=== PATIENT | female | born 1940 | race Caucasian/White ===

== ENCOUNTER 2019-09-06 13:54 | Observation (INO) | payer MEDICARE ==
[~2019-09-06] VITALS: Ht 160 cm; Wt 81.2 kg
[~2019-09-06 13:54] MED LIST: LEVOTHYROXIN25 MCG PO; LEVOTHYROXIN50 MC1 PO; LISINOPRIL20 MG PO; LOPRESSOR50 M2 PO; PHENYTOIN EX100 M1 OR; SIMVASTATIN40 MG OR; SIMVASTATIN40 MG PO
--- NOTE | 2019-09-06 13:54 | NUR ---
PT TO ROOM VIA EMS STRETCHER, FOR BEDSIDE TRIAGE
--- NOTE | 2019-09-06 14:15 | NUR ---
PT POOR HISTORIAN. PT REPORTS HISTORY OF RINGING IN EARS X 2 WEEKS WITH ONSET OF DIZZINESS THIS AM. PT DENIES SYNCOPAL EPISODE. RUST COMPLETED AND IS A 0. PERRLA. PT AND UPDATED ON PLAN OF CARE AND WAIT TIME.
[2019-09-06] MEDS ORDERED: COUMADIN5 MG PO (14:19)
[2019-09-06] MEDS ORDERED: SINGULAIR10 MG PO (14:19)
[2019-09-06] MEDS ORDERED: LEVOTHYROXIN75 MCG PO (14:20)
[2019-09-06 14:51] LABS: HEMATOCRIT 35.9 % (37.0-47.0); HEMOGLOBIN 11.4 g/dl (12.0-16.0); IMMATURE GRANULOCYTES 0.7 % (0.0-5.0); MEAN CELL VOLUME 91.1 fL CALC (80.0-100.0); MEAN CORPUSCULAR HGB 28.9 pG CALC (26.0-32.0); MEAN CORPUSCULAR HGB CONC 31.8 g/dL CAL (32.0-36.0); NEUT# 10.14 thou/uL (2.00-7.15); RED BLOOD COUNT 3.94 mill/uL (4.20-5.60); RED CELL DISTRI WIDTH 13.8 % (11.5-15.5)
[2019-09-06 15:07] LABS: ALBUMIN 3.9 g/dL (3.2-5.0); ALKALINE PHOSPHATASE 93 u/l (38-126); AMYLASE 118 u/l (30-110); BILIRUBIN, TOTAL 0.2 mg/dL (0.0-1.4); BUN 18 mg/dL (8-23); BUN/CREATININE RATIO 25 (12-20 (CALC)); CARBON DIOXIDE 27 mmol/l (22-30); CHLORIDE 101 mmol/l (95-108); CREATININE 0.7 mg/dL (0.5-1.0); ETHYL ALCOHOL 0 mg/dl (0-30); GFR > 60 ML/MIN (>=60 (CALC)); GFR FOR AFR.AMER. > 60 ML/MIN (>=60 (CALC)); LIPASE 141 u/l (23-300); POTASSIUM 4.3 mmol/l (3.5-5.1); SGOT/AST 28 u/l (9-36); TOTAL PROTEIN 7.2 g/dL (6.3-8.2)
--- NOTE | 2019-09-06 15:15 | NUR ---
NOTIFIED AN WE WILL HOLD OFF ON CTA FOR NOW, PER DR TAMEZ.
--- NOTE | 2019-09-06 15:15 | NUR ---
UNABLE TO ESTABLISH IV TO AC.
[2019-09-06 15:16] LABS: ACT PARTIAL THROMBO TIME 33.9 SECONDS (20.0-32.5); ANION GAP 10 (6-22 (CALC)); INTERNATIONAL NORMALIZED RATIO 2.4 RATIO (0.7-1.3); PROTHROMBIN TIME 24.6 SECONDS (9.0-12.5); SODIUM 134 mmol/l (137-146)
--- NOTE | 2019-09-06 16:00 | NUR ---
DR TAMEZ AWARE OF CONTINUED HYPERTENSION. NO NEW ORDERS RECEIVED.
--- NOTE | 2019-09-06 16:45 | NUR ---
PT C/O OF BEING COLD AND SHAKING. PT PROVIDED WARM BLANKETS AND IS AFEBRILE AT THIS TIME.
[2019-09-06 16:54] LABS: URINE BILIRUBIN - DIPSTICK NEGATIVE (NEGATIVE); URINE BLOOD DIPSTICK MODERATE (NEGATIVE); URINE COLOR YELLOW; URINE GLUCOSE - DIPSTICK 100 mg/dL (NEGATIVE); URINE KETONE NEGATIVE (NEGATIVE); URINE LEUK ESTERASE NEGATIVE (NEGATIVE); URINE NITRITE - DIPSTICK NEGATIVE (Negative); URINE PROTEIN - DIPSTICK NEGATIVE (NEG-TRACE); URINE UROBILINOGEN - DIPSTICK 0.2 E.U./dL (0.2)
--- NOTE | 2019-09-06 16:55 | NUR ---
COVID SWAB COMPLETED BY NASOPHARENGEAL SWAB TO RIGHT NARES.
[2019-09-06 17:08] LABS: URINE SQUAMOUS EPITHELIAL CELL FEW EPI/hpf (0-FEW); URINE WBC 0-2 WBC/hpf (0-5)
--- NOTE | 2019-09-06 17:30 | NUR ---
CALL RECEIVED FROM PT'S . HE STATES THE PATIENT HAS BEEN HAVING INTERMITTENT VAGINAL ITCHING AND RASH TO GROIN FOR THE PAST 25 YEARS. HE WOULD LIKE THE ADMITTING PHYSICIAN TO KNOW.
--- NOTE | 2019-09-06 18:15 | NUR ---
PT UPDATED ON PLAN FOR ADMISSION AND WAIT TIME. CALL GREGORY WITHIN REACH, PT DENIES ANY NEEDS AT THIS TIME.
--- NOTE | 2019-09-06 19:00 | NUR ---
PT INCONTINENT OF URINE. PT CLEANED AND LINENS CHANGED.
--- NOTE | 2019-09-06 19:19 | NUR ---
REPORT TO PEDRO BRANCH FOR TRANSPORT.
--- NOTE | 2019-09-06 19:27 | NUR ---
REPORT CALLED TO [facility] FLORES.
--- NOTE | 2019-09-06 20:47 | NUR ---
patient resting quietly at this time. no c/o pain or discomfort. no s/s of distress noted. respirations even and unlabored. awaiting inpatient bed.
--- NOTE | 2019-09-06 21:10 | NUR ---
PT RECEIVED FROM ER VIA STRETCHER ACCOMPANIED BY NURSE. PT ASSISTED IN TO BED. ALERT AND ORIENTED X3. RESP EVEN AND UNLABORED. SKIN INTACT. LUNGS CLEAR BILAT. ABD SOFT AND NONDISTENDED WITH BOWEL SOUNDS PRESENT. NO LOWER EXT EDEMA NOTED. PEDAL PULSES PALPATED BILAT. HEPLOCK IS PATENT IN LEFT HAND. TELE SR HR 70'S. PT ORIENTED TO ROOM AND CALL GREGORY. PT DENIES ANY NAUSEA AT THIS TIME. BED ALARM IS ON FOR PTS SAFETY. OFFERS NO COMPLAINTS. CALL GREGORY WITHIN REACH.
[2019-09-06 21:30] VITALS: BP 156/95
[2019-09-06 21:58] VITALS: BP 156/95
[2019-09-06 23:38] VITALS: BP 167/75
--- NOTE | 2019-09-07 00:15 | NUR ---
RESTING IN BED WITH EYES CLOSED. RESP EVEN AND UNLABORED. NO DISTRESS NOTED. BED ALARM IS ON . FREQUENT ROUNDS MADE. CALL GREGORY WITHIN REACH.
[2019-09-07 01:00] VITALS: BP 157/77
[2019-09-07 03:31] VITALS: BP 185/74
--- NOTE | 2019-09-07 04:01 | NUR ---
PT AWAKE RESTING IN BED. B/P 185/74. HR 69. PT OFFERS NO COMPLAINTS. RESP EVEN AND UNLABORED. PT MEDICATED WITH APRESOLINE 10MG IV. HEPLOCK IS PATENT. WILL CONTINUE TO MONITOR CLOSELY. FREQUENT ROUNDS MADE. CALL GREGORY WITHIN REACH. TELE INTACT.
--- NOTE | 2019-09-07 04:08 | NUR ---
B/P 148/54, HR 76 AFTER RECEIVING APRESOLINE 10MG IV. OFFERS NO COMPLAINTS. BED ALARM IS ON. CALL GREGORY WITHIN REACH.
--- NOTE | 2019-09-07 05:31 | NUR ---
PT RESTING IN BED WATCHING T.V. OFFERS NO COMPLAINTS. BED ALARM IS ON. FREQUENT ROUNDS MADE. CALL GREGORY WITHIN REACH.
[2019-09-07 07:55] LABS: CHOLESTEROL HDL RATIO 2.2 (<4.4 (CALC))
[2019-09-07 08:00] VITALS: BP 137/67
--- NOTE | 2019-09-07 09:00 | NUR ---
PT SEEN AWAKE, ALERT, ORIENTED X 3. LUNGS CLEAR, RA. ABDOMEN SOFT, BM YESTERDAY. BILATERAL PEDAL EDEMA, 1+. NO NAUSEA OR VOMITING. BP WNL.
[2019-09-07 11:06] VITALS: BP 163/62
--- NOTE | 2019-09-07 14:23 | NUR ---
PT SEEN AT REST IN THE BED, NO DISTRESS. PT HAD LOW GRADE FEVER OF 100.1 EARLIER, BUT THIS RESOLVED WITHOUT INTERVENTION.
[2019-09-07 15:21] VITALS: BP 150/72
--- NOTE | 2019-09-07 17:24 | NUR ---
PT REMAINS AT REST IN THE BED, NO COMPLAINTS, NO DISTRESS. NO N/V.
--- NOTE | 2019-09-07 19:05 | NUR ---
REPORT FROM SEGUNDO VASQUEZ. PT NOTED RESTING IN BED WITH EYES CLOSED. NO APPARENT DISTRESS NOTED. PT WAKES EASILY. ALERT AND ORIENTED. IV SITE APPEARS HEALTHY. SORT WORKER AND PURWIK IN PLACE. DISCUSSED POC. PT VERBALIZED UNDERSTANDING. CALL LIGHT WITHIN REACH. WILL CONTINUE TO MONITOR.
[2019-09-07 19:46] VITALS: BP 153/67
--- NOTE | 2019-09-07 21:58 | NUR ---
PT C/O STOMACH FEELING UNEASY AND SOME CRAMPING. VALVE MAKER PHYSICAN NOTIFIED. ORDERS RECEIVED. PT MEDICATED ORDERED WITH PRN MEDICATIONS. PT HAS ACTIVE BOWEL SOUNDS NOTED. DENIES ANY FLATULENCE AND STATES SHE HAD SMALL BM AT BEGINNING OF SHIFT AND DOES HAVE A HX OF CONSTIPATION AT HOME. PT REMAINS AFEBRILE. CALL LIGHT WITHIN REACH. WILL CONTINUE TO MONITOR.
--- NOTE | 2019-09-07 22:39 | NUR ---
PT STATES NAUSEA AND CRAMPING HAS SUBSIDED AND IS FEELING BETTER. WILL CONTINUE TO MONITOR.
[2019-09-08 00:06] VITALS: BP 184/81
[2019-09-08 01:52] VITALS: BP 131/62
--- NOTE | 2019-09-08 02:02 | NUR ---
PT RESTING IN BED WITH EYES CLOSED. NO APPARENT DISTRESS NOTED. CALL LIGHT WITHIN REACH. WILL CONTINUE TO MONITOR.
[2019-09-08 03:30] VITALS: BP 136/61
[2019-09-08 05:02] LABS: HEMATOCRIT 39.9 % (37.0-47.0); HEMOGLOBIN 12.2 g/dl (12.0-16.0); MEAN CELL VOLUME 94.8 fL CALC (80.0-100.0); MEAN CORPUSCULAR HGB CONC 30.6 g/dL CAL (32.0-36.0); RED BLOOD COUNT 4.21 mill/uL (4.20-5.60); RED CELL DISTRI WIDTH 14.3 % (11.5-15.5)
[2019-09-08 05:09] LABS: INTERNATIONAL NORMALIZED RATIO 2.4 RATIO (0.7-1.3); PROTHROMBIN TIME 24.5 SECONDS (9.0-12.5)
[2019-09-08 05:30] LABS: ALBUMIN 3.6 g/dL (3.2-5.0); ALKALINE PHOSPHATASE 70 u/l (38-126); ANION GAP 11 (6-22 (CALC)); BUN 22 mg/dL (8-23); BUN/CREATININE RATIO 34 (12-20 (CALC)); CARBON DIOXIDE 23 mmol/l (22-30); CHLORIDE 108 mmol/l (95-108); CREATININE 0.7 mg/dL (0.5-1.0); GFR > 60 ML/MIN (>=60 (CALC)); GFR FOR AFR.AMER. > 60 ML/MIN (>=60 (CALC)); POTASSIUM 4.4 mmol/l (3.5-5.1); SGOT/AST 31 u/l (9-36); SODIUM 137 mmol/l (137-146); TOTAL PROTEIN 6.7 g/dL (6.3-8.2)
[2019-09-08 05:45] LABS: BILIRUBIN, TOTAL 0.4 mg/dL (0.0-1.4)
[2019-09-08 07:20] VITALS: BP 124/58
--- NOTE | 2019-09-08 09:00 | NUR ---
PT SEEN AWAKE, ALERT, ORIENTED X 3. LUNGS CLEAR, RA. ABDOMEN TENDER, BM YESTERDAY. VSS.
[2019-09-08 12:00] VITALS: BP 107/65
[2019-09-08] MEDS ORDERED: AMLODIPINE BESYL5 MG PO (12:24)
[2019-09-08] MEDS ORDERED: LOSARTAN POTASS50 MG PO (12:25)
[2019-09-08] MEDS ORDERED: MECLIZINE25 MG PO (12:27)
--- NOTE | 2019-09-08 13:00 | NUR ---
PT SEEN BY DR PENA TODAY, TO BE DISCHARGED TO HOME. PT HAS VERBALIZED UNDERSTANDING OF DC INTRUCTIONS, WAITS ON TO BRING CLOTHES. PT IN STABLE CONDITION.
--- NOTE | 2019-09-08 15:13 | NUR ---
PT LEAVES [facility] AT THIS TIME VIA WHEELCHAIR TO LOBBY WHERE WAITS.
--- NOTE | 2019-09-10 08:23 | NUR ---
COVID nasal swab results called to patient with verification of name and date of . Encouraged compliance with CDC recommendations regarding COVID.
== END 2019-09-08 15:10 | disposition home or self-care (01) ==
LOC: ED 13:54 → ED-I 16:55 → ED 17:11 → ED-I 17:12 → MS2 17:12
PROVIDERS: Nurse Practitioner Family; ADMIT Internal Medicine; ATTEND Internal Medicine
DX: R42 Dizziness and giddiness (principal); H93.12 Tinnitus, left ear; I16.0 Hypertensive urgency; I10 Essential (primary) hypertension; J44.9 Chronic obstructive pulmonary disease, unspecified; E78.5 Hyperlipidemia, unspecified; E03.9 Hypothyroidism, unspecified; G40.909 Epilepsy, unspecified, not intractable, without status epilepticus; L29.2 Pruritus vulvae; Z86.718 Personal history of other venous thrombosis and embolism; Z79.01 Long term (current) use of anticoagulants; Z20.828 Contact with and (suspected) exposure to other viral communicable diseases
CPT/HCPCS: G0378; Q9967

== ENCOUNTER 2019-09-19 | Emergency (ER) | payer MEDICARE ==
[~2019-09-19] MED LIST changes: +AMLODIPINE BESYL5 MG PO; +COUMADIN5 MG PO; +LEVOTHYROXIN75 MCG PO; +LOSARTAN POTASS50 MG PO; +MECLIZINE25 MG PO; +SINGULAIR10 MG PO
[2019-09-19 22:57] LABS: HEMATOCRIT 38.2 % (37.0-47.0); HEMOGLOBIN 11.8 g/dl (12.0-16.0); IMMATURE GRANULOCYTES 0.7 % (0.0-5.0); MEAN CELL VOLUME 93.4 fL CALC (80.0-100.0); MEAN CORPUSCULAR HGB 28.9 pG CALC (26.0-32.0); MEAN CORPUSCULAR HGB CONC 30.9 g/dL CAL (32.0-36.0); NEUT# 10.66 thou/uL (2.00-7.15); RED BLOOD COUNT 4.09 mill/uL (4.20-5.60); RED CELL DISTRI WIDTH 14.2 % (11.5-15.5)
[2019-09-19 23:18] LABS: ALBUMIN 4.1 g/dL (3.2-5.0); ALKALINE PHOSPHATASE 80 u/l (38-126); ANION GAP 13 (6-22 (CALC)); BUN 15 mg/dL (8-23); BUN/CREATININE RATIO 19 (12-20 (CALC)); CARBON DIOXIDE 22 mmol/l (22-30); CHLORIDE 106 mmol/l (95-108); CREATININE 0.8 mg/dL (0.5-1.0); GFR > 60 ML/MIN (>=60 (CALC)); GFR FOR AFR.AMER. > 60 ML/MIN (>=60 (CALC)); POTASSIUM 3.8 mmol/l (3.5-5.1); SGOT/AST 30 u/l (9-36); SODIUM 137 mmol/l (137-146); TOTAL PROTEIN 7.5 g/dL (6.3-8.2)
[2019-09-19 23:19] LABS: BILIRUBIN, TOTAL 0.2 mg/dL (0.0-1.4)
[2019-09-19 23:30] LABS: MYOGLOBIN 112 ng/mL (0 - 62)
[2019-09-19] MEDS ORDERED: AMOXICILLIN500 MG PO (23:36)
== END 2019-09-19 23:55 | disposition home or self-care (01) ==
PROVIDERS: Emergency Medicine
PROC: 0HQLXZZ Repair Left Lower Leg Skin, External Approach (ICD-10-PCS; principal; 2019-09-19)
DX: S81.812A Laceration without foreign body, left lower leg, initial encounter (principal); I10 Essential (primary) hypertension; W01.198A Fall on same level from slipping, tripping and stumbling with subsequent striking against other object, initial encounter; Y92.009 Unspecified place in unspecified non-institutional (private) residence as the place of occurrence of the external cause

== ENCOUNTER 2021-07-02 18:02 | Emergency (ER) | payer MEDICARE ==
[~2021-07-02] VITALS: Ht 160 cm; Wt 88.2 kg
[~2021-07-02 18:02] MED LIST changes: +AMOXICILLIN500 MG PO
[2021-07-02 21:34] LABS: HEMATOCRIT 44.2 % (37.0-47.0); HEMOGLOBIN 13.5 g/dl (12.0-16.0); IMMATURE GRANULOCYTES 0.4 % (0.0-5.0); MEAN CELL VOLUME 94.4 fL CALC (80.0-100.0); MEAN CORPUSCULAR HGB 28.8 pG CALC (26.0-32.0); MEAN CORPUSCULAR HGB CONC 30.5 g/dL CAL (32.0-36.0); NEUT# 7.06 thou/uL (2.00-7.15); RED BLOOD COUNT 4.68 mill/uL (4.20-5.60)
[2021-07-02 21:49] LABS: ALBUMIN 4.1 g/dL (3.2-5.0); ALKALINE PHOSPHATASE 93 u/l (38-126); BUN 14 mg/dL (8-23); BUN/CREATININE RATIO 20 (12-20 (CALC)); CARBON DIOXIDE 25 mmol/l (22-30); CHLORIDE 104 mmol/l (95-108); CREATININE 0.7 mg/dL (0.5-1.0); GFR > 60 ML/MIN (>=60 (CALC)); GFR FOR AFR.AMER. > 60 ML/MIN (>=60 (CALC)); SGOT/AST 31 u/l (9-36); SODIUM 137 mmol/l (137-146); TOTAL PROTEIN 7.9 g/dL (6.3-8.2)
[2021-07-02 21:50] LABS: ANION GAP 13 (6-22 (CALC)); BILIRUBIN, TOTAL 0.3 mg/dL (0.0-1.4); POTASSIUM 4.6 mmol/l (3.5-5.1)
[2021-07-02 21:54] LABS: INTERNATIONAL NORMALIZED RATIO 3.7 RATIO (0.7-1.3); PROTHROMBIN TIME 35.6 SECONDS (9.0-12.5)
[2021-07-02 23:46] VITALS: BP 173/73
== END 2021-07-03 00:10 | disposition home or self-care (01) ==
LOC: ED 18:02
PROVIDERS: Family Medicine
DX: S16.1XXA Strain of muscle, fascia and tendon at neck level, initial encounter (principal); S39.012A Strain of muscle, fascia and tendon of lower back, initial encounter; S80.211A Abrasion, right knee, initial encounter; T14.8XXA Other injury of unspecified body region, initial encounter; I10 Essential (primary) hypertension; V86.19XA Passenger of other special all-terrain or other off-road motor vehicle injured in traffic accident, initial encounter; Y92.414 Local residential or business street as the place of occurrence of the external cause; Z86.718 Personal history of other venous thrombosis and embolism; Z79.01 Long term (current) use of anticoagulants